=== PATIENT | male | born 1950 | race Caucasian/White ===

== ENCOUNTER → 2017-01-09 | Outpatient (CLI) | payer OTHER ==
[2013-06-03 10:54] VITALS: BP 123/73
[2017-01-09 08:13] LABS: BASOPHILS # (AUTO) 0.1 X10^3/uL (0.0-0.1); BASOPHILS % (AUTO) 0.6 % (0.2-1.0); EOSINOPHILS # (AUTO) 0.3 x10^3/uL (0.0-0.2); EOSINOPHILS % (AUTO) 2.7 % (0.9-2.9); HEMATOCRIT 34.1 % (42.0-54.0); HEMOGLOBIN 11.9 g/dL (13.5-18.0); LYMPHOCYTES # (AUTO) 1.3 X10^3/uL (1.3-2.9); LYMPHOCYTES % (AUTO) 14.4 % (21.0-51.0); MEAN CORPUSCULAR HEMOGLOBIN 30.5 pg (27.0-34.0); MEAN CORPUSCULAR VOLUME 87.1 fL (80.0-100.0); MEAN PLATELET VOLUME 7.9 fL (7.4-11.0); MONOCYTES # (AUTO) 0.8 x10^3/uL (0.3-0.8); MONOCYTES % (AUTO) 8.4 % (0.0-13.0); NEUTROPHILS # (AUTO) 6.9 x10^3/uL (2.2-4.8); NEUTROPHILS % (AUTO) 73.9 % (42.0-75.0); PLATELET COUNT 403 X10^3/uL (150.0-450.0); RED BLOOD COUNT 3.92 X10^6/uL (4.7-6.0); WHITE BLOOD COUNT 9.3 X10^3/uL (3.6-10.0)
[2017-01-09 08:25] LABS: ALANINE AMINOTRANSFERASE 15 Units/L (12-78); ALBUMIN 3.2 g/dL (3.4-5.0); ALKALINE PHOSPHATASE 81 Units/L (46-116); ASPARTATE AMINO TRANSFERASE 15 Units/L (15-37); BLOOD UREA NITROGEN 14 mg/dL (7-18); CALCIUM 9.1 mg/dL (8.5-10.1); CARBON DIOXIDE 30.3 mmol/L (21-32); CHLORIDE 99 mmol/L (98-107); COR CA(FOR HYPOALB) 9.7 mg/dL (8.5-10.1); COR NA(FOR HYPERGLY) 137 mmol/L (136-145); CREATININE 1.46 mg/dL (0.70-1.30); GLUCOSE 118 mg/dL (65-99); SODIUM 137 mmol/L (136-145); TOTAL PROTEIN 8.2 g/dL (6.4-8.2); eGFR BLACK RACES > 60 (>60); eGFR NON BLACK RACES 51 (>60)
== END ==
LOC: LAB 07:50
PROVIDERS: ATTEND Internal Medicine Hematology & Oncology
DX: C18.8 Malignant neoplasm of overlapping sites of colon (principal)
CPT/HCPCS: 36415; 80053; 82378; 85025

== ENCOUNTER → 2017-07-14 | Outpatient (CLI) | payer OTHER ==
[2013-06-03 10:54] VITALS: BP 123/73
[2017-07-14 07:39] LABS: BASOPHILS # (AUTO) 0.1 X10^3/uL (0.0-0.1); BASOPHILS % (AUTO) 1.3 % (0.2-1.0); EOSINOPHILS # (AUTO) 0.3 x10^3/uL (0.0-0.2); EOSINOPHILS % (AUTO) 3.8 % (0.9-2.9); HEMATOCRIT 39.8 % (42.0-54.0); HEMOGLOBIN 13.7 g/dL (13.5-18.0); LYMPHOCYTES # (AUTO) 1.8 X10^3/uL (1.3-2.9); MEAN CORPUSCULAR HEMOGLOBIN 30.7 pg (27.0-34.0); MEAN CORPUSCULAR HGB CONC 34.5 g/dL (33.0-35.0); MEAN CORPUSCULAR VOLUME 89.1 fL (80.0-100.0); MEAN PLATELET VOLUME 8.9 fL (7.4-11.0); MONOCYTES # (AUTO) 0.5 x10^3/uL (0.3-0.8); MONOCYTES % (AUTO) 6.9 % (0.0-13.0); PLATELET COUNT 309 X10^3/uL (150.0-450.0); RED BLOOD COUNT 4.47 X10^6/uL (4.7-6.0); RED CELL DISTRIBUTION WIDTH 13.2 % (11.6-16.5); WHITE BLOOD COUNT 7.7 X10^3/uL (3.6-10.0)
[2017-07-14 07:52] LABS: ALANINE AMINOTRANSFERASE 20 Units/L (12-78); ALBUMIN 3.7 g/dL (3.4-5.0); ALKALINE PHOSPHATASE 84 Units/L (46-116); ASPARTATE AMINO TRANSFERASE 15 Units/L (15-37); BLOOD UREA NITROGEN 17 mg/dL (7-18); CALCIUM 9.3 mg/dL (8.5-10.1); CARBON DIOXIDE 29.8 mmol/L (21-32); CHLORIDE 102 mmol/L (98-107); COR NA(FOR HYPERGLY) 139 mmol/L (136-145); CREATININE 0.79 mg/dL (0.70-1.30); SODIUM 139 mmol/L (136-145); eGFR BLACK RACES > 60 (>60); eGFR NON BLACK RACES > 60 (>60)
== END ==
LOC: LAB 07:13
PROVIDERS: ATTEND Internal Medicine Hematology & Oncology
DX: C18.8 Malignant neoplasm of overlapping sites of colon (principal)
CPT/HCPCS: 36415; 80053; 82378; 85025

== ENCOUNTER 2021-12-20 13:53 | Inpatient (IN) ==
--- NOTE | 2021-12-20 14:43 | RAD ---
HISTORYDYSPNEA Relevant Clinical InformationSTUDYCHEST, PA/LAT ADULTCOMPARISONTwo-view chest December 17, 2021FINDINGSThe trachea is midline. The cardiac silhouette is mildly enlarged but stable.. The lungs are clear without focal infiltrate but there are bibasilar effusions right larger than left unchanged from the recent chest film December 17, 2021. The bony thorax is unremarkable.IMPRESSIONStable chest with mild cardiomegaly and bilateral right greater than left small pleural effusions unchanged from the recent film of December 17, 2021..Electronically signed by: JACQUES BARROW (Dec 20, 2021 14:42:20)
[2021-12-20 16:11] VITALS: BMI 26.4
[2021-12-20 16:16] LABS: BASOPHILS % (AUTO) 0.2 % (0.2-1.0); EOSINOPHILS % (AUTO) 0.1 % (0.9-2.9); HEMATOCRIT 37.2 % (42.0-54.0); HEMOGLOBIN 12.6 g/dL (13.5-18.0); LYMPHOCYTES # (AUTO) 1.2 X10^3/uL (1.3-2.9); LYMPHOCYTES % (AUTO) 9.2 % (21.0-51.0); MEAN CORPUSCULAR HEMOGLOBIN 30.1 pg (27.0-34.0); MEAN CORPUSCULAR VOLUME 88.7 fL (80.0-100.0); MEAN PLATELET VOLUME 9.5 fL (7.4-11.0); MONOCYTES % (AUTO) 7.4 % (0.0-13.0); NEUTROPHILS # (AUTO) 10.7 x10^3/uL (2.2-4.8); NEUTROPHILS % (AUTO) 83.1 % (42.0-75.0); RED BLOOD COUNT 4.19 X10^6/uL (4.7-6.0); RED CELL DISTRIBUTION WIDTH 13.7 % (11.6-16.5); WHITE BLOOD COUNT 12.9 X10^3/uL (3.6-10.0)
[2021-12-20 16:25] LABS: ALANINE AMINOTRANSFERASE 18 Units/L (12-78); ALBUMIN 2.8 g/dL (3.4-5.0); ALKALINE PHOSPHATASE 82 Units/L (46-116); ASPARTATE AMINO TRANSFERASE 10 Units/L (15-37); BLOOD UREA NITROGEN 14 mg/dL (7-18); CALCIUM 8.6 mg/dL (8.5-10.1); CARBON DIOXIDE 31.3 mmol/L (21-32); CHLORIDE 104 mmol/L (98-107); COR CA(FOR HYPOALB) 9.6 mg/dL (8.5-10.1); COR NA(FOR HYPERGLY) 140 mmol/L (136-145); CREATININE 0.92 mg/dL (0.70-1.30); MAGNESIUM 2.2 mg/dL (1.7-2.9); SODIUM 140 mmol/L (136-145); TOTAL PROTEIN 6.5 g/dL (6.4-8.2); eGFR NON BLACK RACES > 60 (>60)
[2021-12-20] MEDS: PROVENTIL NEB TX 0.083% 2.5MG/ 3ML NEB SCH ×2 (16:46→21:35)
[2021-12-20] MEDS ORDERED: NS 100 ML IV 100 ML ONE (17:09)
[2021-12-20] MEDS: LEVAQUIN PREMIX IV 750 MG 750 MG/150 ML BAG IV SCH (17:53)
[2021-12-20] MEDS: FORTAZ or TAZICEF VIAL INJ 2 G in NS 100 ML IV 100 ML IV SCH ×2 (17:53→21:23)
[2021-12-20] MEDS: LASIX IVP SCH (17:53)
[2021-12-20] MEDS ORDERED: TYLENOL 325 MG TAB PO PRN (19:01)
[2021-12-20] MEDS ORDERED: RESTORIL CAP 15 MG PO PRN (21:59)
[2021-12-20 23:02] LABS: CKMB % 3.9 % (<4)
[2021-12-21] MEDS: PROVENTIL NEB TX 0.083% 2.5MG/ 3ML NEB SCH ×2 (05:00→13:30)
[2021-12-21] MEDS: FORTAZ or TAZICEF VIAL INJ 2 G in NS 100 ML IV 100 ML IV SCH ×2 (05:03→15:05)
[2021-12-21 05:09] LABS: BASOPHILS # (AUTO) 0.1 X10^3/uL (0.0-0.1); EOSINOPHILS # (AUTO) 0.2 x10^3/uL (0.0-0.2); EOSINOPHILS % (AUTO) 1.4 % (0.9-2.9); HEMATOCRIT 35.6 % (42.0-54.0); LYMPHOCYTES # (AUTO) 1.9 X10^3/uL (1.3-2.9); LYMPHOCYTES % (AUTO) 17.1 % (21.0-51.0); MEAN CORPUSCULAR HEMOGLOBIN 29.6 pg (27.0-34.0); MEAN CORPUSCULAR HGB CONC 33.6 g/dL (33.0-35.0); MEAN PLATELET VOLUME 9.6 fL (7.4-11.0); MONOCYTES # (AUTO) 0.7 x10^3/uL (0.3-0.8); MONOCYTES % (AUTO) 6.5 % (0.0-13.0); NEUTROPHILS # (AUTO) 8.2 x10^3/uL (2.2-4.8); RED BLOOD COUNT 4.05 X10^6/uL (4.7-6.0); RED CELL DISTRIBUTION WIDTH 13.6 % (11.6-16.5); WHITE BLOOD COUNT 11.1 X10^3/uL (3.6-10.0)
[2021-12-21 05:16] LABS: ALANINE AMINOTRANSFERASE 16 Units/L (12-78); ALBUMIN 2.7 g/dL (3.4-5.0); ALKALINE PHOSPHATASE 72 Units/L (46-116); ASPARTATE AMINO TRANSFERASE 8 Units/L (15-37); BLOOD UREA NITROGEN 16 mg/dL (7-18); CALCIUM 8.4 mg/dL (8.5-10.1); CARBON DIOXIDE 32.5 mmol/L (21-32); CHLORIDE 101 mmol/L (98-107); CKMB % 9.1 % (<4); COR CA(FOR HYPOALB) 9.4 mg/dL (8.5-10.1); CREATINE KINASE 11 Units/L (39-308); CREATINE KINASE MB < 1.0 ng/mL (0-4.0); CREATININE 0.84 mg/dL (0.70-1.30); SODIUM 138 mmol/L (136-145); TOTAL PROTEIN 6.2 g/dL (6.4-8.2); eGFR NON BLACK RACES > 60 (>60)
[2021-12-21] MEDS ORDERED: POTASSIUM CHLORIDE LIQ 20 MEQ UDC PO PRN (05:56)
[2021-12-21] MEDS ORDERED: K-DUR TAB 20 MEQ PO PRN (05:56)
--- NOTE | 2021-12-21 06:08 | RAD ---
HISTORYShortness of breathSTUDYChest AP [id number]/30/2022FINDINGSThe heart remains enlarged. No definite congestive heart failure is identified. Lungs are well inflated. New infiltrates are present in the right lung apex and peripherally in the left upper lobe.. Small right pleural effusion remains. Left pleural effusion appears to have resolved. Bony thorax is unremarkable.IMPRESSIONContinued cardiomegaly without congestive heart failureNew right apical and peripheral left upper lobe infiltratesNo change small right pleural effusion, resolved left pleural effusionElectronically signed by: PUSHPA ARREOLA (Dec 21, 2021 06:07:00)
[2021-12-21] MEDS: LASIX IVP SCH (08:08)
[2021-12-21] MEDS: LEVAQUIN PREMIX IV 750 MG 750 MG/150 ML BAG IV SCH (08:09)
[2021-12-21] MEDS ORDERED: NS 100 ML IV 100 ML ONE (08:44)
[2021-12-21] MEDS ORDERED: LOVENOX INJ 40 MG SYR SC SCH (09:00)
[2021-12-21] MEDS ORDERED: NITROSTAT SL PRN (10:31)
[2021-12-21] MEDS ORDERED: ADENOCARD INJ 6 MG IVP ONE ×3 (10:39→10:50)
[2021-12-21] MEDS ORDERED: ADENOCARD INJ 6 MG ONE ×3 (10:41→10:53)
[2021-12-21 10:45] LABS: CKMB % 8.3 % (<4)
[2021-12-21] MEDS ORDERED: ASPIRIN PO SCH (11:00)
[2021-12-21] MEDS ORDERED: COREG TAB 6.25 MG PO SCH (11:00)
[2021-12-21] MEDS ORDERED: CARDIZEM INJ 50 MG VIAL IVP ONE (11:04)
[2021-12-21] MEDS ORDERED: DILTIAZEM 125mg/125mL-0.7%NACL 125 MG/125 ML PLAST..BAG IV PRN (11:04)
[2021-12-21] MEDS ORDERED: DILTIAZEM 125mg/125mL-0.7%NACL 125 MG/125 ML PLAST..BAG IV ONE (11:11)
[2021-12-21] MEDS ORDERED: NS 1,000 ML IV 1,000 ML ONE ×2 (11:11→12:23)
[2021-12-21] MEDS ORDERED: DOPAMINE IV PREMIX 400 MG/250 ML 400 MG/250 ML BAG IV PRN (11:45)
[2021-12-21] MEDS ORDERED: LANOXIN INJ IVP NR (12:00)
[2021-12-21] MEDS ORDERED: CARDIZEM CD 120 MG 24-HR PO SCH (12:00)
[2021-12-21] MEDS ORDERED: NS 1,000 ML IV 1,000 ML IV SCH (13:00)
[2021-12-21] MEDS ORDERED: LOPRESSOR INJ 5 MG AMP IVP ONE (13:43)
[2021-12-21] MEDS ORDERED: LOPRESSOR INJ 5 MG AMP ONE (13:53)
[2021-12-21] MEDS ORDERED: NEXTERONE IV 150 MG PREMIX* 150 MG/100 ML BAG IV ONE ×2 (14:05→14:16)
[2021-12-21] MEDS ORDERED: NEXTERONE IV 360 MG PREMIX* 360 MG/200 ML BAG IV ONE ×2 (14:15→19:57)
[2021-12-21] MEDS ORDERED: DRUG FILTER EXTENSION SET ONE (14:50)
[2021-12-21 16:21] LABS: CKMB % 10.8 % (<4); CREATINE KINASE MB 13.8 ng/mL (0-4.0)
[2021-12-21] MEDS ORDERED: HEPARIN SODIUM IN D5W 25,000 UNITS/500 ML BAG IV PRN (16:53)
[2021-12-21] MEDS ORDERED: MORPHINE SULFATE INJ 2 MG INJ IVP PRN (16:53)
[2021-12-21] MEDS ORDERED: HEPARIN SODIUM INJ 5000 UNITS IVP ONE (17:29)
[2021-12-21] MEDS ORDERED: HEPARIN SODIUM INJ 5000 UNITS ONE (17:31)
--- NOTE | 2021-12-21 17:34 | DR.SSS ---
SHORT STAY SUMMARY Admission Date Date of Admission: 12/20/21 Discharge Date Discharge Date: 12/21/21 Admission Diagnoses Admission Diagnoses: 1. Shortness of breath/dyspnea 2. Bilateral pleural effusions 3. History of lung cancer Discharge Diagnoses Discharge Diagnoses: 1. Non-STEMI 2. SVT now resolved 3. Elevated BNP with bilateral pleural effusions 4. Hyperthyroidism with history of recent cold thyroid nodule diagnosis 5. History of acid reflux Chief Complaint Chief Complaint: Shortness of breath/dyspnea History of Present Illness History of Present Illness: This is a 71-year-old white male who I direct admitted to the hospital for increasing shortness of breath and dyspnea over the last few days. I did an x-ray of the chest as outpatient showed bilateral pleural effusions and it is noted now that he is becoming more hypoxic with O2 sat in the low 90s on room air. He reports his chest feels tight and that he is not able to get enough air he has failed outpatient treatment with antibiotics and albuterol nebulizers I am going to go ahead and during the meeting for IV diuresis with Lasix for the pleural effusions. I will check a BNP and routine labs and repeat chest x-ray after he gets to the hospital. Past Medical History Past Medical History: Anxiety, GERD and Hyperthyroidism Past Surgical History Surgical History: Bowel Resection Allergies Allergies Allergy/AdvReac Type Severity Reaction Status Date / Time No Known Drug Allergies Allergy Verified 09/13/21 07:15 Medications Home Medications: No Known Drug Allergies Allergy (Verified 09/13/21 07:15) CONTINUE taking the following medications clonazepam 1 mg tablet 1 tab PO BID PRN 12/20/21 [History] levofloxacin 500 mg tablet 1 tab PO QDAY 12/20/21 [History] methimazole 10 mg tablet 1 tab PO QDAY 12/20/21 [History] methylprednisolone 4 mg tablets in a dose pack See Rx Instructions .Route .COMPLEX 12/20/21 [History] omeprazole 40 mg capsule,delayed release 1 cap PO BID 12/20/21 [History] pantoprazole 40 mg tablet,delayed release 1 tab PO BID 12/20/21 [History] Family History Family Medical History: [place], Coronary Artery Disease and Sudden Cardiac Social History Does patient currently use any type of tobacco product: Yes Have you used tobacco products in the last 12 months: Yes Type of Tobacco Use: Cigarettes Alcohol Use: None Review of Systems Constitutional: Weakness Eyes: No Symptoms Reported ENT: No Symptoms Reported Respiratory: Cough, Shortness of Breath and SOB with Excertion Cardiovascular: Chest Pain Gastrointestinal: No Symptoms Reported Genitourinary: No Symptoms Reported Musculoskeletal: No Symptoms Reported Skin: No Symptoms Reported Neurological: No Symptoms Reported Physical Exam Vital Signs: Last Vital Signs Temp 97.7 F 12/21/21 08:18 Pulse 72 12/21/21 17:05 Resp 27 H 12/21/21 17:05 BP 99/68 12/21/21 17:05 Pulse Ox 98 12/21/21 17:05 O2 Del Method Room Air 12/21/21 10:07 Oriented: Normal, Time, Person and Place Eyes: Normal Ear: Normal Nose: Normal Throat: Normal Respiratory: Diminished Throughout (Bilateral air entry to bases of lungs are diminished) Cardiovascular: Tachycardia : Normal Auscultation: Bowel Sounds: Normal Palpation: Normal Tenderness: Normal Skin: Normal Musculoskeletal: Normal Psychiatric: Anxiety Mood Description: Calm Affect: Anxious Speech Pattern: Clear and Appropriate Labs Labs: Laboratory Last Values WBC 11.1 X10^3/uL (3.6-10.0) H 12/21/21 03:55 RBC 4.05 X10^6/uL (4.7-6.0) L 12/21/21 03:55 Hgb 12.0 g/dL (13.5-18.0) L 12/21/21 03:55 Hct 35.6 % (42.0-54.0) L 12/21/21 03:55 MCV 88.0 fL (80.0-100.0) 12/21/21 03:55 MCH 29.6 pg (27.0-34.0) 12/21/21 03:55 MCHC 33.6 g/dL (33.0-35.0) 12/21/21 03:55 RDW 13.6 % (11.6-16.5) 12/21/21 03:55 Plt Count 327 X10^3/uL (150.0-450.0) 12/21/21 03:55 MPV 9.6 fL (7.4-11.0) 12/21/21 03:55 Neut % (Auto) 74.0 % (42.0-75.0) 12/21/21 03:55 Lymph % (Auto) 17.1 % (21.0-51.0) L 12/21/21 03:55 Lassen % (Auto) 6.5 % (0.0-13.0) 12/21/21 03:55 Eos % (Auto) 1.4 % (0.9-2.9) 12/21/21 03:55 Baso % (Auto) 1.0 % (0.2-1.0) 12/21/21 03:55 Neut # (Auto) 8.2 x10^3/uL (2.2-4.8) H 12/21/21 03:55 Lymph # (Auto) 1.9 X10^3/uL (1.3-2.9) 12/21/21 03:55 Lassen # (Auto) 0.7 x10^3/uL (0.3-0.8) 12/21/21 03:55 Eos # (Auto) 0.2 x10^3/uL (0.0-0.2) 12/21/21 03:55 Baso # (Auto) 0.1 X10^3/uL (0.0-0.1) 12/21/21 03:55 Absolute Nucleated RBC 0.0 /100WBC 12/21/21 03:55 PT 15.8 SECONDS (11.8-14.3) 12/21/21 17:05 INR Target Range - 12/21/21 17:05 INR 1.30 (0.8-1.3) 12/21/21 17:05 APTT 36.8 SECONDS (22.9-36.5) H 12/21/21 17:05 PTT Comment - 12/21/21 17:05 Sodium 138 mmol/L (136-145) 12/21/21 03:55 Corrected Sodium TNP 12/21/21 03:55 Potassium 3.5 mmol/L (3.5-5.1) 12/21/21 03:55 Chloride 101 mmol/L (98-107) 12/21/21 03:55 Carbon Dioxide 32.5 mmol/L (21-32) H 12/21/21 03:55 BUN 16 mg/dL (7-18) 12/21/21 03:55 Creatinine 0.84 mg/dL (0.70-1.30) 12/21/21 03:55 Est GFR (MDRD) Af Amer > 60 (>60) 12/21/21 03:55 Est GFR (MDRD) Non-Af > 60 (>60) 12/21/21 03:55 Glucose 94 mg/dL (65-99) 12/21/21 03:55 Calcium 8.4 mg/dL (8.5-10.1) L 12/21/21 03:55 Corrected Calcium 9.4 mg/dL (8.5-10.1) 12/21/21 03:55 Magnesium 2.2 mg/dL (1.7-2.9) 12/20/21 16:00 Total Bilirubin 0.30 mg/dL (0.2-1.0) 12/21/21 03:55 AST 8 Units/L (15-37) L 12/21/21 03:55 ALT 16 Units/L (12-78) 12/21/21 03:55 Alkaline Phosphatase 72 Units/L (46-116) 12/21/21 03:55 Creatine Kinase 128 Units/L (39-308) 12/21/21 15:35 CK-MB (CK-2) 13.8 ng/mL (0-4.0) H 12/21/21 15:35 CK/CKMB % Calc 10.8 % (<4) 12/21/21 15:35 Troponin I High Sens 3873.8 ng/L (4.0-60.0) H* 12/21/21 15:35 B-Natriuretic Peptide 854 pg/mL (0-79) H* 12/21/21 03:55 Total Protein 6.2 g/dL (6.4-8.2) L 12/21/21 03:55 Albumin 2.7 g/dL (3.4-5.0) L 12/21/21 03:55 Globulin 3.5 g/dL (2.5-4.5) 12/21/21 03:55 Albumin/Globulin Ratio 0.8 Ratio (1.1-2.1) L 12/21/21 03:55 SARS-CoV-2 (PCR) Negative (NEGATIVE) 12/20/21 18:05 Assessment/Plan (1) Dyspnea: 1: Patient will be admitted to hospital started on Lasix 40 mg IV every 12 hours. I will check a BNP repeat chest x-ray today and again tomorrow. Repeat BMP in the morning as well. I will also check a CMP to check his kidney function. (2) Non-STEMI (non-ST elevated myocardial infarction): 1: I spoke to center administrator erin and [place], [place] at [facility]. Will be transferring him there later for cardiology consultation and intervention if necessary. In the meantime I will start the patient on a heparin drip DC the Lovenox SQ every 12 hours patient has already had aspirin today currently holding his nitroglycerin because of his hypotension. In the muscle currently holding the beta-luis e as his low blood pressure would not allow us giving him any. (3) Bilateral pleural effusion: 1: Patient to be diuresed with IV Lasix 40 mg IV twice daily (4) Elevated brain natriuretic peptide (BNP) level: (5) Acid reflux: 1: I will resume the patient's pantoprazole. (6) History of lung cancer in adulthood: (7) Hyperthyroidism: 1: Continue methimazole. Hospital Course Hospital Course: After admission and by the next morning the patient was feeling much better. It was noted he did have some bigeminy through the night on his EKGs and rhythm strips. He was not particularly symptomatic for his chest pain and his shortness of breath had improved since Lasix have been started earlier in the afternoon. When I saw him initially he was sitting up in the bed talking and joking around and he seemed disappointed that I was not sending him home this morning when after I told him I wanted to send him home the following day. His BNP was greater than 2000 coming in yesterday and this morning is much improved. However later on in the morning after he got up to use the restroom to urinate when he came back to the bed his heart rate jumped up to the 170s and 180s. Telemetry showed as well as EKG that he was in SVT. I ordered him Identicard IV x3 doses which did not convert him. After that we tried a bolus of IV Cardizem then a Cardizem drip which did not resolve his SVT. Afterwards we called pharmacy and had to calculate him as digoxin to giving the loading to see if that would get him out of SVT and unfortunately it did not. Since that did not work I ordered amiodarone drip to be started and likely that did bring his heart rate down to the 60s and stopped his SVT. He was complaining of some chest discomfort afterwards so we went ahead and repeated another troponin and did a repeat EKG and his high-sensitivity troponin was greater than 3800. Because of his symptomatology and new symptoms of hypotension with elevated troponin and chest discomfort we elected to go ahead and call cardiology at [facility]. I discussed the patient with Dr. Oh initially and also another center administrator who is on-call for the [employer] cannot recall his name at this time. We will be working on getting him transferred down there later this afternoon or early evening after speak with the hospitalist Dr. Jara and arrange for transportation. Discharge Medications Discharge Medications: Home Medication List clonazepam 1 mg tablet 1 tab PO BID PRN 12/20/21 [History] levofloxacin 500 mg tablet 1 tab PO QDAY 12/20/21 [History] methimazole 10 mg tablet 1 tab PO QDAY 12/20/21 [History] methylprednisolone 4 mg tablets in a dose pack See Rx Instructions .Route .COMPLEX 12/20/21 [History] omeprazole 40 mg capsule,delayed release 1 cap PO BID 12/20/21 [History] pantoprazole 40 mg tablet,delayed release 1 tab PO BID 12/20/21 [History] Prescriptions: Discharge Disposition Discharge Disposition: Patient will be transferred to [facility] in stable condition. Discharge Plan Discharge Plan Patient Disposition: OTHER Condition: Stable Health Concerns: Post Hospitalization: new medications and changes needed to prevent readmission or further decline. Pt educated and given instructions on all concerns. Care Plan Goals: Problem: Respiratory Complications Goal: Improved Uncomplicated Respiratory Status Instructions: Follow provided instructions. Follow up with primary physician as directed. Contact primary care physician or report to the closest Emergency Room if condition worsens. Plan of Treatment: Continue with present treatment and follow up plan. Pt is to keep follow up appointment as instructed and take medications as ordered. Assessment: Patient resting in bed with NC @ 2 liters patient talking with staff. Patient continue on the Heparin Drip as well as the amiodarone drip. Patient blood pressure 116/68 (74) (22) 97%. Iv intact. Prescriptions: No Action clonazepam 1 mg tablet 1 tab PO BID PRN omeprazole 40 mg capsule,delayed release(DR/EC) 1 cap PO BID pantoprazole 40 mg tablet,delayed release (DR/EC) 1 tab PO BID levofloxacin 500 mg tablet 1 tab PO QDAY methylprednisolone 4 mg tablets,dose pack See Rx Instructions .ROUTE .COMPLEX Rx Instructions: take as directed methimazole 10 mg tablet 1 tab PO QDAY Orders to Discharge Patient Discharge Orders: Discharge (Routine); Ordered 12/21/21 Ordered By: COURT BRIGHT Discharge by Transfer to Outside Facility (Routine); Ordered 12/21/21 Ordered By: COURT BRIGHT Follow ups/Referrals Follow ups/Referrals: COURT BRIGHT [Primary Care Provider] - 1 WEEK Instructions Instructions: Steps to Quit Smoking, Jbml-[id number], Fall Prevention in the Home, Adult, Fqjk-[id number], Shortness of Breath, Adult, Wpxl-mw-Peyp, Chronic Obstructive Pulmonary Disease, Bscp-vm-Uwyu, Hypertension, Adult, Eygc-eu-Funh Stand Alone Forms: Precautions for COVID19, [facility], Patient Portal, Social Distancing Patient Education Addl Reference Links: Shortness of Breath, Adult [email or web address] [email or web address]&[email or web address].c=M&p atientPerson.admi nistrativeGenderCode.dn=Male&age.v.v=71&age.v.u=a&performer=PROV&informationReci pient=PAT&performer.languageCode.c=en&mainSearchCriteria.v.dn=Dyspnea&[email or web address]
[2021-12-21 19:47] VITALS: BP 116/68
== END 2021-12-21 20:05 | disposition short-term general hospital (02) | DRG 281 ==
LOC: ICU
PROVIDERS: ADMIT Family Medicine; ATTEND Family Medicine
DX: R06.02 Shortness of breath; E05.90 Thyrotoxicosis, unspecified without thyrotoxic crisis or storm; I95.89 Other hypotension; R77.8 Other specified abnormalities of plasma proteins; R79.1 Abnormal coagulation profile; K21.9 Gastro-esophageal reflux disease without esophagitis; R07.89 Other chest pain; I21.4 Non-ST elevation (NSTEMI) myocardial infarction; Z20.822 Contact with and (suspected) exposure to COVID-19; J90 Pleural effusion, not elsewhere classified; E04.1 Nontoxic single thyroid nodule; Z85.118 Personal history of other malignant neoplasm of bronchus and lung